=== PATIENT | male | born 2000 | race Caucasian/White ===

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

== ENCOUNTER 2018-09-12 11:05 | Emergency (ER) | payer OTHER ==
[2018-09-12 11:49] VITALS: BP 113/66; PULSE 63; RESP 18; TEMP 98
--- NOTE | 2018-09-12 12:34 | XR ---
Right hand and right wrist HISTORY: Trauma and pain 3 views of the right hand and 4 views of the right wrist There are mid diaphyseal fourth and fifth metacarpal fractures of the right hand with volar angulatio n, there is displacement of the fourth metacarpal fracture with bayonet apposition. There is associat ed soft tissue swelling present. No dislocation. IMPRESSION: Fourth and fifth metacarpal fractures.
== END 2018-09-12 13:05 | disposition left against medical advice (07) ==
LOC: EC 11:05
DX: S69.91XA Unspecified injury of right wrist, hand and finger(s), initial encounter (principal); W01.0XXA Fall on same level from slipping, tripping and stumbling without subsequent striking against object, initial encounter; Z53.21 Procedure and treatment not carried out due to patient leaving prior to being seen by health care provider
CPT/HCPCS: 99499

== ENCOUNTER 2018-09-16 20:33 | Emergency (ER) | payer OTHER ==
[2018-09-16 20:46] VITALS: TEMP 98
[2018-09-16 20:59] VITALS: BP 117/74; PULSE 78; RESP 18
--- NOTE | 2018-09-16 21:28 | ED ---
Psych HPI - General Source: patient, EMS Mode of arrival: EMS <Letitia Traore - Last Filed: 09/17/18 01:01> <Mani Pate - Last Filed: 09/17/18 08:33> - General Chief Complaint: Psychiatric Symptoms Stated Complaint: Self harm Time Seen by Provider: 09/16/18 20:41 - History of Present Illness Initial Comments: 18-year-old male patient presents to the emergency department today for evaluation after cutting himself with a razor. Patient states that he has been struggling with the fact that his father does not want to spend time with him. States that he has reached out multiple times to his father who says he will spend time with him, but he always comes up with a reason that it cannot happen. Patient states this frustrates him. States he became very frustrated today and decided to attempt to self-harm. Patient states he was not trying to kill himself, states he has too much to live for to . Patient denies any homicid al ideation. States he doesn't feel particularly depressed. States that he did have counseling once in the past but it didn't work out. States he did drink [address] Denies any street drug use. He has no physical symptoms or concerns other than the cuts on his arms. He believes his tetanus shot is up-to-date. Patient is also reporting significant right hand pain. He states he fell injuring in on 09/12/18, did present here for xrays and was told it was broken. States everything was taking so long he left prior to seeing a physician or having a splint applied. (Letitia Traore) - Related Data Home Medications Medication Instructions Recorded Confirmed Divalproex Sodium [Depakote] 500 mg PO BID 09/16/18 09/16/18 QUEtiapine FUMARATE [SEROquel] 25 mg PO HS 09/16/18 09/16/18 Previous Rx's Medication Instructions Recorded Naproxen [EC-Naprosyn] 500 mg PO BID PRN #30 tablet. 09/17/18 Allergies Allergy/AdvReac Type Severity Reaction Status Date / Time No Known Allergies Allergy Verified 09/16/18 22:07 Review of Systems ROS Other: All systems not noted in ROS Statement are negative. <Letitia Traore - Last Filed: 09/17/18 01:01> ROS Other: All systems not noted in ROS Statement are negative. <Mani Pate - Last Filed: 09/17/18 08:33> ROS Statement: Those systems with pertinent positive or pertinent negative responses have been documented in the HPI. Past Medical History Past Medical History: No Reported History Additional Past Medical History / Comment(s): spontaneous pneumothorax History of Any Multi-Drug Resistant Organisms: None Reported Past Surgical History: No Surgical Hx Reported Additional Past Surgical History / Comment(s): chest tube Past Psychological History: ADD/ADHD, Anxiety, Bipolar, Depression, PTSD, Schizophrenia Smoking Status: Former smoker Past Alcohol Use History: Rare Past Drug Use History: None Reported <Letitia Traore - Last Filed: 09/17/18 01:01> General Exam General appearance: alert, in no apparent distress, other (Physical well- developed, well-nourished adult male patient in no acute distress. Vital signs upon presentation are temperature 98.0F, pulse 78, respirations 18, blood pressure 117/74, pulse ox 98% on room air.) Eye exam: Present: normal appearance, PERRL, EOMI. Absent: scleral icterus, conjunctival injection, periorbital swelling ENT exam: Present: normal exam, normal oropharynx, mucous membranes moist Respiratory exam: Present: normal lung sounds bilaterally. Absent: respiratory distress, wheezes, rales, rhonchi, stridor Cardiovascular Exam: Present: regular rate, normal rhythm, normal heart sounds. Absent: systolic murmur, diastolic murmur, rubs, gallop, clicks Extremities exam: Present: full ROM, normal capillary refill, other (There are multiple superficial lacerations of varying sizes to the bilateral volar forearms. No active bleeding. There is dried blood surrounding. Patient's skin is otherwise pink, warm, dry. Cap refills less than 3 seconds. Radial pulses 2+ and equal bilaterally. Right hand bony deformity noted over the right dorsal hand. There is soft tissue swelling. Radial pulses 2+ and equal bilaterally.). Absent: normal inspection, tenderness, pedal edema, joint swelling, calf tenderness Neurological exam: Present: alert, oriented X3, CN II-XII intact Psychiatric exam: Present: normal affect, normal mood Skin exam: Present: warm, dry, intact, normal color. Absent: rash <Rudy Traoreina Carlotta - Last Filed: 09/17/18 01:01> Course Vital Signs 09/16/18 20:39 Temperature 98 F Pulse Rate 78 Respiratory 18 Rate Blood Pressure 117/74 O2 Sat by Pulse 98 Oximetry Medical Decision Making - Radiology Data Radiology results: report reviewed, image reviewed <EugenieLetitia M - Last Filed: 09/17/18 01:01> <Mani Pate - Last Filed: 09/17/18 08:33> - Medical Decision Making 18-year-old male patient presents to the emergency department today for evaluation of self-inflicted wounds to the volar forearms. Physical examination did reveal multiple superficial lacerations to the volar aspect of the bilateral forearms. Bleeding was controlled. These lacerations did not require suture repair. Patient was seen and evaluated by emergency psychiatric services and salt that he does not meet inpatient criteria and is safe to be discharged home. He has not suicidal or homicidal. Patient also sustain an injury 3 days ago. He was seen and evaluated here and had x-rays performed however left prior to receiving treatment. X-ray was reviewed and did reveal nondisplaced but angulated fracture of the right fifth metacarpal and a displaced fracture of the fourth metacarpal. Hematoma block was performed, reduction of the fourth metacarpal was performed by my attending Dr. Pate. Patient tolerated this procedure well. Repeat x-ray was performed and showed similar appearing fractures to the previous x-ray. I did discuss findings and results with the patient. He is pleased an OCL splint and instructed to follow-up with category specialist for further evaluation as soon as possible. He is given naproxen for pain control and instructed to take Tylenol in addition to this. Return parameters were discussed in detail. He verbalizes understanding and agrees with this plan. (Letitia Traore) I saw this patient in conjunction with the physician payroll and benefits assistant. I performed independent history and physical exam. Agree with case management. I did personally participate in the reduction and splinting of this patient (Mani Pate) - Lab Data Lab Results 09/16/18 Range/Units 21:51 Urine Opiates Screen Not Detected (NotDetected) Ur Oxycodone Screen Not Detected (NotDetected) Urine Methadone Screen Not Detected (NotDetected) Ur Propoxyphene Screen Not Detected (NotDetected) Ur Barbiturates Screen Not Detected (NotDetected) U Tricyclic Antidepress Not Detected (NotDetected) Ur Phencyclidine Scrn Not Detected (NotDetected) Ur Amphetamines Screen Not Detected (NotDetected) U Methamphetamines Scrn Not Detected (NotDetected) U Benzodiazepines Scrn Not Detected (NotDetected) Urine Cocaine Screen Not Detected (NotDetected) U Marijuana (THC) Screen Not Detected (NotDetected) - Radiology Data 3 views of the right hand are obtained. Report reviewed in its entirety. Impression by Dr. Owens shows similar line of the fourth and fifth metacarpal diaphyseal fractures. (Letitia Traore) Disposition Is patient prescribed a controlled substance at d/c from ED?: No Time of Disposition: 00:45 <Letitia Traore - Last Filed: 09/17/18 01:01> <Mani Pate - Last Filed: 09/17/18 08:33> Clinical Impression: Self-harming behavior, Right hand fracture Disposition: HOME SELF-CARE Condition: Good Instructions (If sedation given, give patient instructions): Laceration (ED), Hand Fracture (ED), Suicide Prevention (ED) Additional Instructions: Follow-up with primary care physician for recheck this as possible. Follow-up with your category specialist for recheck as soon as possible, number has been provided below for you. Take Tylenol and prescription medication for pain control. Rest and ice the hand. Do not remove splint until follow-up. Return to the emergency department immediately for any new, worsening, or concerning symptoms. Prescriptions: Naproxen [EC-Naprosyn] 500 mg PO BID PRN #30 tablet.dr BOX Reason: Pain Referrals: Roland Patel DO [Medical Doctor] - 1-2 days
[2018-09-16 22:20] LABS: Amphetamine Screen,Urine Not Detected (NotDetected); Barbiturate Screen,Urine Not Detected (NotDetected); Benzodiazepines Screen,Urine Not Detected (NotDetected); Cocaine Screen,Urine Not Detected (NotDetected); Methadone Screen, Urine Not Detected (NotDetected); Opiate Screen,Urine Not Detected (NotDetected); Oxycodone Screen, Urine Not Detected (NotDetected); Phencyclidine Screen,Urine Not Detected (NotDetected); Tricyclic Antidepressant,Urine Not Detected (NotDetected); Urn Cannabinoid Scrn Not Detected (NotDetected)
[2018-09-16] MEDS ORDERED: LIDOCAINE 1% INJ 10MG/ML (20 ML MDV) SQ ONE (22:36)
[2018-09-17] MEDS ORDERED: NAPROXEN 250 MG TAB PO STA (00:19)
[2018-09-17] MEDS ORDERED: ACETAMINOPHEN TAB 325 MG TAB PO STA (00:19)
--- NOTE | 2018-09-17 00:35 | XR ---
EXAM: XR Right Hand Complete, 3 or More Views CLINICAL HISTORY: Post reduction (prev xray 09/12/18) TECHNIQUE: Frontal, lateral and oblique views of the right hand. COMPARISON: 09/12/2018 1210 FINDINGS: Bones/joints: Similar alignment of fourth and fifth metacarpal diaphyseal fractures. Soft tissues: Unremarkable. No radiopaque foreign body. IMPRESSION: Similar alignment of fourth and fifth metacarpal diaphyseal fractures.
== END 2018-09-17 01:05 | disposition home or self-care (01) ==
LOC: EC 20:33
DX: Z72.89 Other problems related to lifestyle (principal); Z63.8 Other specified problems related to primary support group; S62.306A Unspecified fracture of fifth metacarpal bone, right hand, initial encounter for closed fracture; S62.304A Unspecified fracture of fourth metacarpal bone, right hand, initial encounter for closed fracture; S51.812A Laceration without foreign body of left forearm, initial encounter; S51.811A Laceration without foreign body of right forearm, initial encounter; F31.9 Bipolar disorder, unspecified; F20.9 Schizophrenia, unspecified; Z87.891 Personal history of nicotine dependence; Z79.899 Other long term (current) drug therapy; X78.8XXA Intentional self-harm by other sharp object, initial encounter
CPT/HCPCS: 82075; 80306; 73120; 99285; 26605; J2001

== ENCOUNTER 2019-01-01 21:50 | Emergency (ER) | payer OTHER ==
[2019-01-01] MEDS ORDERED: DIVALPROEX 500 MG TABLET.DR PO STA (22:24)
--- NOTE | 2019-01-01 22:27 | ED ---
Psych HPI - General Chief Complaint: Extremity Injury, Upper Stated Complaint: Hand injury Time Seen by Provider: 01/01/19 22:00 Source: patient, RN notes reviewed, old records reviewed Mode of arrival: ambulatory - History of Present Illness Initial Comments: This is a 18-year-old male the ER for evaluation presenting of right hand pain complicated by psychiatric illness. Patient's been off psychiatric medications for a few weeks now this is secondary to moving the [place] than being arrested warm and brought to [facility] ([facility]]. Patient has had multiple recent fractures with unknown timeline of right hand all from boxer's break, patient had no surgical evaluation regarding that hand. Most recent inpatient punch 2 objects today both prior to coming to the ER and then one swollen line waiting in the ER. Initial injury occurred weeks ago MD Complaint: other (Patient states is off his medications) -: unknown Associated Psychiatric Symptoms: racing thoughts History of same: Yes Quality: constant Improves With: none Worsens With: none Context: significant life stressor (Recent arrest on warrant) Associated Symptoms: denies other symptoms Treatments Prior to Arrival: none If Self Harm: other (none) - Related Data Previous Rx's Medication Instructions Recorded Naproxen [EC-Naprosyn] 500 mg PO BID PRN #30 tablet. 09/17/18 Divalproex Sodium [Depakote] 500 mg PO BID #60 tab 01/01/19 QUEtiapine FUMARATE [SEROquel] 25 mg PO HS #30 tab 01/01/19 Allergies Allergy/AdvReac Type Severity Reaction Status Date / Time No Known Allergies Allergy Verified 01/01/19 21:56 Review of Systems ROS Statement: Those systems with pertinent positive or pertinent negative responses have been documented in the HPI. ROS Other: All systems not noted in ROS Statement are negative. Past Medical History Past Medical History: No Reported History Additional Past Medical History / Comment(s): spontaneous pneumothorax History of Any Multi-Drug Resistant Organisms: None Reported Past Surgical History: No Surgical Hx Reported Additional Past Surgical History / Comment(s): chest tube Past Psychological History: ADD/ADHD, Anxiety, Bipolar, Depression, PTSD, Schizophrenia Smoking Status: Former smoker Past Alcohol Use History: Rare Past Drug Use History: None Reported General Exam Limitations: no limitations General appearance: alert, in no apparent distress Head exam: Present: atraumatic, normocephalic, normal inspection Eye exam: Present: normal appearance, PERRL, EOMI. Absent: scleral icterus, conjunctival injection, periorbital swelling ENT exam: Present: normal exam, mucous membranes moist Neck exam: Present: normal inspection. Absent: tenderness, meningismus, lymphadenopathy Respiratory exam: Present: normal lung sounds bilaterally. Absent: respiratory distress, wheezes, rales, rhonchi, stridor Cardiovascular Exam: Present: normal rhythm, bradycardia, normal heart sounds. Absent: systolic murmur, diastolic murmur, rubs, gallop, clicks GI/Abdominal exam: Present: soft, normal bowel sounds. Absent: distended, tenderness, guarding, rebound, rigid Extremities exam: Present: normal inspection, full ROM, normal capillary refill. Absent: tenderness, pedal edema, joint swelling, calf tenderness Back exam: Present: normal inspection Neurological exam: Present: alert, oriented X3, CN II-XII intact Psychiatric exam: Present: normal affect, normal mood Skin exam: Present: warm, dry, intact, normal color. Absent: rash Course Vital Signs 01/01/19 21:52 Temperature 98.1 F Pulse Rate 53 L Respiratory 20 Rate Blood Pressure 121/64 O2 Sat by Pulse 95 Oximetry - Reevaluation(s) Reevaluation #1: 01/01/19 23:28 Medical records reviewed showing positive have fractures in his past. These fractures go back to August Reevaluation #2: 01/01/19 23:28 Discussed with patient and caregiver need to follow-up with orthopedics secondary to displaced and nonhealing fractures going on for 4 months now Reevaluation #3: 01/01/19 23:28 Just requesting psychiatric medication will follow-up with orthopedics as directed Medical Decision Making - Medical Decision Making 18 male the ER for evaluation of significant right hand fractures, off psychiatric medications given prescriptions for psychiatric medications here and urged to follow-up with orthopedics - Radiology Data Radiology results: report reviewed (X-ray right hand does show boxer's break fourth and fifth metatarsal significant displacement with delayed healing and nonunion), image reviewed Disposition Clinical Impression: Medication refill, Fracture of hand, Boxer's fracture Disposition: HOME SELF-CARE Condition: Good Instructions (If sedation given, give patient instructions): Hand Fracture (ED) Prescriptions: Divalproex Sodium [Depakote] 500 mg PO BID #60 tab QUEtiapine FUMARATE [SEROquel] 25 mg PO HS #30 tab Is patient prescribed a controlled substance at d/c from ED?: No Referrals: None,Stated [Primary Care Provider] - 1-2 days
[2019-01-01] MEDS ORDERED: QUEtiapine 25 MG TAB PO ONE (22:30)
--- NOTE | 2019-01-01 22:48 | XR ---
EXAMINATION TYPE: XR hand complete RT DATE OF EXAM: 01/01/2019 COMPARISON: 09/17/2018 HISTORY: Hand injury. Pain TECHNIQUE: 3 views FINDINGS: There is deformity of the fourth and fifth metacarpals related to healing fractures. There is slight posterior angulation at the fracture sites. There is bridging callus formation. IMPRESSION: Healing fractures of the fourth and fifth metacarpals without significant change in posit ion compared to last exam. No acute fracture seen.
[2019-01-01 23:51] VITALS: BP 120/71; PULSE 60; RESP 18; TEMP 97.9
== END 2019-01-01 23:36 | disposition home or self-care (01) ==
LOC: EC 21:50
DX: S62.394A Other fracture of fourth metacarpal bone, right hand, initial encounter for closed fracture (principal); S62.396A Other fracture of fifth metacarpal bone, right hand, initial encounter for closed fracture; Z76.0 Encounter for issue of repeat prescription; R00.1 Bradycardia, unspecified; Z87.891 Personal history of nicotine dependence; W22.01XA Walked into wall, initial encounter; Y93.89 Activity, other specified; Y92.009 Unspecified place in unspecified non-institutional (private) residence as the place of occurrence of the external cause
CPT/HCPCS: 99284

== ENCOUNTER 2019-01-03 21:13 | Emergency (ER) | payer OTHER ==
[2019-01-03 21:24] VITALS: TEMP 98
--- NOTE | 2019-01-03 21:26 | ED ---
General Adult HPI - General Chief complaint: Shortness of Breath Stated complaint: SOB, Syncope, vomiting blood Time Seen by Provider: 01/03/19 21:25 Source: patient Mode of arrival: wheelchair Limitations: no limitations - History of Present Illness Initial comments: Bill is a 18-year-old male with a history of psychiatric illness, patient resume psychiatric medications yesterday after being off them for a long period of time. Patient presents to the emergency Department today with multiple complaints. Patient reports he's been nauseated throughout the day today, he's also had bloody noses all day, he states that this evening he became very hot and sweaty, he then became chilled and nauseated and vomited noted there is blood in his vomit. He then became very anxious and decided to come to the ER. Upon arrival to ER patient felt that he could no longer breathe. Patient reported he has a history of spontaneous pneumo 2 in the past. - Related Data Previous Rx's Medication Instructions Recorded Naproxen [EC-Naprosyn] 500 mg PO BID PRN #30 tablet. 09/17/18 Divalproex Sodium [Depakote] 500 mg PO BID #60 tab 01/01/19 QUEtiapine FUMARATE [SEROquel] 25 mg PO HS #30 tab 01/01/19 Allergies Allergy/AdvReac Type Severity Reaction Status Date / Time No Known Allergies Allergy Verified 01/03/19 21:23 Review of Systems ROS Statement: Those systems with pertinent positive or pertinent negative responses have been documented in the HPI. ROS Other: All systems not noted in ROS Statement are negative. Past Medical History Past Medical History: No Reported History Additional Past Medical History / Comment(s): spontaneous pneumothorax History of Any Multi-Drug Resistant Organisms: None Reported Past Surgical History: No Surgical Hx Reported Additional Past Surgical History / Comment(s): chest tube Past Psychological History: ADD/ADHD, Anxiety, Bipolar, Depression, PTSD, Schizophrenia Smoking Status: Former smoker Past Alcohol Use History: Rare Past Drug Use History: None Reported General Exam - General Exam Comments Initial Comments: Physical Exam GENERAL: Patient is well-developed and well-nourished. Patient is nontoxic and well-hydrated and is in no distress. HENT: Normocephalic, Atraumatic. EYES: PERRL, EOMI PULMONARY: Unlabored respirations. No wheezing CARDIOVASCULAR: RRR Warm and well perfused extremities ABDOMEN: Non-distended SKIN: No rashes or bruising : Deferred NEUROLOGIC: Alert and oriented Normal speech Normal gait MUSCULOSKELETAL: Moving all extremities with no apparent injury PSYCHIATRIC: No SI/HI Limitations: no limitations Course Vital Signs 01/03/19 21:21 Temperature 98.0 F Pulse Rate 72 Respiratory 28 H Rate Blood Pressure 145/56 O2 Sat by Pulse 98 Oximetry Medical Decision Making - Medical Decision Making Upon arrival patient was noted to be tachypneic with rapid shallow breathing. Patient was near tears and very anxious appearing. Patient had clear bilateral breath sounds and oxygen saturation 98% on room air. Breathing exercises were discussed with the patient. Patient was given Ativan for anxiolysis. Patient was able to slow his breathing, breath sounds remained clear. Chest x-ray with no acute findings. Physical exam is unremarkable vital signs are unremarkable. I discussed with the patient that likely his persistent nausea throughout the day today's related to starting new medications yesterday. Patient has a history of scant GI bleeding in the past with episodes of vomiting but has never been evaluated by GI. No history of alcohol abuse or cirrhosis. Patient will be given Zofran ODT to take as needed for nausea. Patient drinking water comfortably while in the emergency department. At this time patient stable for discharge home follow up with outpatient physician. Disposition Clinical Impression: Nausea and vomiting, Hyperventilating Disposition: HOME SELF-CARE Condition: Stable Instructions (If sedation given, give patient instructions): Acute Nausea and Vomiting (ED) Additional Instructions: You did received Ativan while in the emergency department, this will cause your drug screen to be positve for benzodiazapines Is patient prescribed a controlled substance at d/c from ED?: No Referrals: None,Stated [Primary Care Provider] - 1-2 days
[2019-01-03] MEDS ORDERED: LORazepam 2 MG/ML INJ IV STA (21:31)
--- NOTE | 2019-01-03 21:53 | XR ---
EXAMINATION TYPE: XR chest 1V portable DATE OF EXAM: 01/03/2019 COMPARISON: 12/23/2014 HISTORY: Chest pain TECHNIQUE: Single frontal view of the chest is obtained. FINDINGS: Heart and mediastinum are normal. Lungs are clear. Diaphragm is normal. Bony thorax appear s normal. Pulmonary vascularity is normal. IMPRESSION: Normal chest. No change.
[2019-01-03] MEDS ORDERED: ONDANSETRON 4 MG ODT STARTER PACK 2 TAB BTL PO STA (22:13)
[2019-01-03 22:29] VITALS: BP 146/62; PULSE 69; RESP 20
== END 2019-01-03 22:19 | disposition home or self-care (01) ==
LOC: EC 21:13
DX: R06.4 Hyperventilation (principal); R11.2 Nausea with vomiting, unspecified; R06.82 Tachypnea, not elsewhere classified; Z87.19 Personal history of other diseases of the digestive system; Z87.891 Personal history of nicotine dependence
CPT/HCPCS: 71045; 99284; 96374; J2060; S0119

== ENCOUNTER 2019-02-06 17:24 | Emergency (ER) | payer OTHER ==
[2019-02-06 17:29] VITALS: BP 104/47; PULSE 72; RESP 18; TEMP 99.1
[2019-02-06] MEDS ORDERED: PROPARACAINE 0.5% OPHTH DROPS 15 ML BTL BOTH EYES STA (18:42)
--- NOTE | 2019-02-06 18:56 | ED ---
General Adult HPI - General Chief complaint: Back Pain/Injury Stated complaint: kidney pain/eyes burning Time Seen by Provider: 02/06/19 18:36 Source: patient, RN notes reviewed Mode of arrival: ambulatory Limitations: no limitations - History of Present Illness Initial comments: 18-year-old male with a past medical history of spontaneous pneumothorax p resents for multiple complaints. Patient states his eyes are burning. States this started earlier this morning. Patient denies getting any substance into his eyes. Denies any visual changes. Denies any significant pain. Patient also complaining of low back pain. States this hurts more with bending. Patient is concerned it could be his kidneys or an infection. 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 Denies dysuria fever or hematuria. Denies abdominal pain.Patient has no other complaints at this time including shortness of breath, chest pain, abdominal pain, nausea or vomiting, headache, or visual changes. - Related Data Previous Rx's Medication Instructions Recorded Naproxen [EC-Naprosyn] 500 mg PO BID PRN #30 tablet. 09/17/18 Divalproex Sodium [Depakote] 500 mg PO BID #60 tab 01/01/19 QUEtiapine FUMARATE [SEROquel] 25 mg PO HS #30 tab 01/01/19 Loratadine [Claritin] 10 mg PO DAILY #20 tab 02/06/19 Allergies Allergy/AdvReac Type Severity Reaction Status Date / Time No Known Allergies Allergy Verified 02/06/19 17:28 Review of Systems ROS Statement: Those systems with pertinent positive or pertinent negative responses have been documented in the HPI. ROS Other: All systems not noted in ROS Statement are negative. Past Medical History Past Medical History: No Reported History, Seizure Disorder Additional Past Medical History / Comment(s): spontaneous pneumothorax History of Any Multi-Drug Resistant Organisms: None Reported Past Surgical History: No Surgical Hx Reported Additional Past Surgical History / Comment(s): chest tube Past Psychological History: ADD/ADHD, Anxiety, Bipolar, Depression, PTSD, Schizophrenia Smoking Status: Former smoker Past Alcohol Use History: Rare Past Drug Use History: None Reported General Exam Limitations: no limitations General appearance: alert, in no apparent distress Head exam: Present: atraumatic, normocephalic, normal inspection Eye exam: Present: normal appearance, PERRL, EOMI, other (fluorescein stain and Wood's lamp used to visualize the conjunctiva, no evidence for abrasion.). Absent: scleral icterus, conjunctival injection, periorbital swelling ENT exam: Present: normal exam, mucous membranes moist Neck exam: Present: normal inspection, full ROM. Absent: tenderness, meningismus, lymphadenopathy Respiratory exam: Present: normal lung sounds bilaterally. Absent: respiratory distress, wheezes, rales, rhonchi, stridor Cardiovascular Exam: Present: regular rate, normal rhythm, normal heart sounds. Absent: systolic murmur, diastolic murmur, rubs, gallop, clicks GI/Abdominal exam: Present: soft, normal bowel sounds. Absent: distended, tenderness, guarding, rebound, rigid Back exam: Absent: CVA tenderness (R), CVA tenderness (L), vertebral tenderness Neurological exam: Present: alert, oriented X3, normal gait Course Vital Signs 02/06/19 17:25 Temperature 99.1 F Pulse Rate 72 Respiratory 18 Rate Blood Pressure 104/47 O2 Sat by Pulse 97 Oximetry Medical Decision Making - Medical Decision Making Patient is well-appearing, nontoxic, no distress. No flank pain on exam. Patient does have mild hematuria on urinalysis. I do not suspect kidney stone as pain is mild and worsens with movement. It is in the generalized low back. Patient likely is just muscular strain of the lumbar back. No numbness or tingl ing in the lower extremities. No bladder or bowel changes. No dysuria. No numbness in the groin or buttock. Patient will take Motrin and Tylenol for pain. Patient is also having burning around his eyes. I did stain these with fluorescein stain, no evidence for abrasion. Patient will be put on Claritin. He will return if he has any worsening symptoms. - Lab Data Lab Results 02/06/19 Range/Units 18:50 Urine Color Yellow Urine Appearance Clear (Clear) Urine pH 8.0 (5.0-8.0) Ur Specific [place] 1.023 (1.001-1.035) Urine Protein Trace H (Negative) Urine Glucose (UA) Negative (Negative) Urine Ketones Negative (Negative) Urine Blood Trace H (Negative) Urine Nitrite Negative (Negative) Urine Bilirubin Negative (Negative) Urine Urobilinogen 3.0 (<2.0) mg/dL Ur Leukocyte Esterase Negative (Negative) Urine RBC 9 H (0-5) /hpf Urine WBC <1 (0-5) /hpf Urine Mucus Rare H (None) /hpf Disposition Clinical Impression: Hematuria Disposition: HOME SELF-CARE Condition: Good Instructions (If sedation given, give patient instructions): Acute Low Back Pain (ED), Hematuria (ED) Additional Instructions: please take Claritin as directed for eye burning. Pleasetake Motrin and Tylenol for back pain. Follow-up with primary care in 1-2 days for repeat urinalysis to ensure that blood resolved. Prescriptions: Loratadine [Claritin] 10 mg PO DAILY #20 tab Is patient prescribed a controlled substance at d/c from ED?: No Referrals: Skylar Siegel MD [REFERRING] - 1-2 days Time of Disposition: 19:53
[2019-02-06 19:05] LABS: Appearance,Urine Clear (Clear); Bilirubin,Urine Negative (Negative); Blood,Urine Trace (Negative); Color,Urine Yellow; Glucose,Urine (UA) Negative (Negative); Ketones,Urine Negative (Negative); Leukocyte Esterase,Urine Negative (Negative); Mucus,Urine Rare /hpf; Nitrite,Urine Negative (Negative); Protein,Urine Trace (Negative); RBC,Urine 9 /hpf (0-5); Specific Gravity,Urine 1.023 (1.001-1.035); WBC,Urine <1 /hpf (0-5)
[2019-02-07 13:41] LABS: C. trachomatis,PCR Negative (Neg,Equiv); Chlamydia trachomatis Source Urine; N. gonorrhoeae,PCR Negative (Neg,Equiv); Neisseria Source Urine
== END 2019-02-06 20:00 | disposition home or self-care (01) ==
LOC: EC 17:24
DX: R31.9 Hematuria, unspecified (principal); M54.5 Low back pain; H57.89 Other specified disorders of eye and adnexa; Z87.891 Personal history of nicotine dependence
CPT/HCPCS: 81001; 87086; 87491; 87591; 87661; 99283

== ENCOUNTER 2019-02-27 02:25 | Emergency (ER) | payer OTHER ==
[2019-02-27] MEDS ORDERED: ONDANSETRON 4 MG ODT STARTER PACK 2 TAB BTL PO STA (03:44)
--- NOTE | 2019-02-27 03:45 | ED ---
Nausea/Vomiting/Diarrhea HPI - General Chief complaint: Nausea/Vomiting/Diarrhea Stated complaint: Vomiting Time Seen by Provider: 02/27/19 03:44 Source: patient Mode of arrival: ambulatory Limitations: no limitations - History of Present Illness Initial comments: Bill is a 19-year-old male who lives at [facility], presents to the emergency room and today via private vehicle for evaluation of nausea and vomiting. Patient reports that he began feeling nauseated he didn't feel well he didn't feel like eating but attempted to eat dinner which the cervix not chose. Patient reports he then had 2 hours of vomiting. At which time he decided to come to the ER for evaluation. Patient reports upon arrival in the emergency department he is feeling slightly better but hasn't been able to hold down any liquids and is concerned that he is dehydrated. Patient reports crampy abdominal pain that began with the vomiting seems to be worse on the right than the left. No diarrhea. Last bowel movement was earlier today. - Related Data Previous Rx's Medication Instructions Recorded Naproxen [EC-Naprosyn] 500 mg PO BID PRN #30 tablet. 09/17/18 Divalproex Sodium [Depakote] 500 mg PO BID #60 tab 01/01/19 QUEtiapine FUMARATE [SEROquel] 25 mg PO HS #30 tab 01/01/19 Loratadine [Claritin] 10 mg PO DAILY #20 tab 02/06/19 Allergies Allergy/AdvReac Type Severity Reaction Status Date / Time No Known Allergies Allergy Verified 02/06/19 17:28 Review of Systems ROS Statement: Those systems with pertinent positive or pertinent negative responses have been documented in the HPI. ROS Other: All systems not noted in ROS Statement are negative. Past Medical History Past Medical History: No Reported History, Seizure Disorder Additional Past Medical History / Comment(s): spontaneous pneumothorax History of Any Multi-Drug Resistant Organisms: None Reported Past Surgical History: No Surgical Hx Reported Additional Past Surgical History / Comment(s): chest tube, Past Psychological History: ADD/ADHD, Anxiety, Bipolar, Depression, PTSD, Schizophrenia Smoking Status: Former smoker Past Alcohol Use History: Rare Past Drug Use History: None Reported General Exam - General Exam Comments Initial Comments: Physical Exam GENERAL: Patient is well-developed and well-nourished. Patient is nontoxic and well- hydrated and is in no distress. HENT: Normocephalic, Atraumatic. EYES: PERRL, EOMI PULMONARY: Unlabored respirations. No audible rales rhonchi or wheezing was noted. CARDIOVASCULAR: There is a regular rate and rhythm without any murmurs gallops or rubs. ABDOMEN: Diffuse tenderness to palpation SKIN: Skin is clear with no lesions or rashes and otherwise unremarkable. : Deferred NEUROLOGIC: Patient is alert and oriented x3. Moving all extremities spontaneously MUSCULOSKELETAL: Normal extremities with adequate strength and full range of motion. No lower extremity swelling or edema. No calf tenderness. PSYCHIATRIC: Flat affect Limitations: no limitations Course Vital Signs 02/27/19 02/27/19 02/27/19 02:28 03:49 05:57 Temperature 97.6 F 97.9 F Pulse Rate 79 60 60 Respiratory 18 16 18 Rate Blood Pressure 134/65 121/64 124/77 O2 Sat by Pulse 99 100 100 Oximetry Medical Decision Making - Medical Decision Making Patient was seen and evaluated history is obtained from patient Patient had acute onset of nausea and vomiting without diarrhea. Patient unable to tolerate any by mouth intake for 4 hours now. Labs were ordered and resulted with acute leukocytosis with neutrophilia therefore computed tomography scan of the abdomen was ordered and resulted with no acute findings aside from a distended bladder likely secondary to the fluids the patient was given. Patient has normal kidney function normal electrolytes no elevation of his CRP. Patient was reevaluated after fluids reports he's feeling much better he got Zofran ODT and has had no nausea or vomiting is comfortable with plan for discharge home and outpatient follow-up. 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 Patient discharged home in stable condition. - Lab Data Result diagrams: 02/27/19 04:21 02/27/19 04:21 Lab Results 02/27/19 02/27/19 Range/Units 04:21 04:21 WBC 19.8 H (3.8-10.6) k/uL RBC 5.01 (4.30-5.90) m/uL Hgb 15.9 (13.0-17.5) gm/dL Hct 44.4 (39.0-53.0) % MCV 88.7 (80.0-100.0) fL MCH 31.8 (25.0-35.0) pg MCHC 35.8 (31.0-37.0) g/dL RDW 11.9 (11.5-15.5) % Plt Count 260 (150-450) k/uL Neutrophils % 88 % Lymphocytes % 6 % Monocytes % 3 % Eosinophils % 1 % Basophils % 1 % Neutrophils # 17.5 H (1.3-7.7) k/uL Lymphocytes # 1.2 (1.0-4.8) k/uL Monocytes # 0.7 (0-1.0) k/uL Eosinophils # 0.2 (0-0.7) k/uL Basophils # 0.1 (0-0.2) k/uL Sodium 139 (137-145) mmol/L Potassium 4.3 (3.5-5.1) mmol/L Chloride 104 (98-107) mmol/L Carbon Dioxide 27 (22-30) mmol/L Anion Gap 8 mmol/L BUN 8 L (9-20) mg/dL Creatinine 0.84 (0.66-1.25) mg/dL Est GFR (CKD-EPI)AfAm >90 (>60 ml/min/1.73 sqM) Est GFR (CKD-EPI)NonAf >90 (>60 ml/min/1.73 sqM) Glucose 112 H (74-99) mg/dL Calcium 9.6 (8.4-10.2) mg/dL Total Bilirubin 0.6 (0.2-1.3) mg/dL AST 33 (17-59) U/L ALT 20 (4-49) U/L Alkaline Phosphatase 88 (38-126) U/L C-Reactive Protein <5.0 (<10.0) mg/L Total Protein 7.9 (6.3-8.2) g/dL Albumin 4.7 (3.5-5.0) g/dL Disposition Clinical Impression: Nausea and vomiting Disposition: HOME SELF-CARE Condition: Stable Instructions (If sedation given, give patient instructions): Acute Nausea and Vomiting (ED) Is patient prescribed a controlled substance at d/c from ED?: No Referrals: None,Stated [Primary Care Provider] - 1-2 days
[2019-02-27 03:51] VITALS: PULSE 60; TEMP 97.9
[2019-02-27] MEDS ORDERED: SODIUM CHLORIDE 0.9% 1,000 ML IV STA (04:06)
[2019-02-27 04:31] LABS: Basophils # (A) 0.1 k/uL (0-0.2); Basophils % (A) 1 %; Eosinophils # (A) 0.2 k/uL (0-0.7); Eosinophils % (A) 1 %; HCT 44.4 % (39.0-53.0); HGB 15.9 gm/dL (13.0-17.5); Lymphocytes # (A) 1.2 k/uL (1.0-4.8); Lymphocytes % (A) 6 %; MCH 31.8 pg (25.0-35.0); MCHC 35.8 g/dL (31.0-37.0); MCV 88.7 fL (80.0-100.0); Mean Platelet Volume 6.7; Monocytes # (A) 0.7 k/uL (0-1.0); Monocytes % (A) 3 %; Neutrophils # (A) 17.5 k/uL (1.3-7.7); Neutrophils % (A) 88 %; Platelet Count 260 k/uL (150-450); RBC 5.01 m/uL (4.30-5.90); RDW 11.9 % (11.5-15.5); WBC 19.8 k/uL (3.8-10.6)
[2019-02-27 04:45] LABS: ALT 20 U/L (4-49); AST 33 U/L (17-59); African American GFR (CKD) >90 (>60 ml/min/1.73 sqM); Albumin 4.7 g/dL (3.5-5.0); Alkaline Phosphatase 88 U/L (38-126); Anion Gap 8 mmol/L; Blood Urea Nitrogen 8 mg/dL (9-20); C Reactive Protein <5.0 mg/L (<10.0); Calcium 9.6 mg/dL (8.4-10.2); Carbon Dioxide 27 mmol/L (22-30); Chloride 104 mmol/L (98-107); Glucose 112 mg/dL (74-99); Non-African American GFR(CKD) >90 (>60 ml/min/1.73 sqM); Potassium 4.3 mmol/L (3.5-5.1); Sodium 139 mmol/L (137-145); Total Bilirubin 0.6 mg/dL (0.2-1.3); Total Protein 7.9 g/dL (6.3-8.2)
--- NOTE | 2019-02-27 05:35 | CT ---
EXAM: CT Abdomen and Pelvis With Intravenous Contrast CLINICAL HISTORY: ITS.REASON CT Reason: abd pain, leukocytosis TECHNIQUE: Axial computed tomography images of the abdomen and pelvis with intravenous contrast. CTDI is 7 mGy and DLP is 480 mGy-cm. This CT exam was performed using one or more of the following dose reduction techniques: automated exposure control, adjustment of the mA and/or kV according to patient size, and/or use of iterative reconstruction technique. COMPARISON: No relevant prior studies available. FINDINGS: Lung bases: No mass. No consolidation. ABDOMEN: Liver: Enlarged. Gallbladder and bile ducts: Unremarkable. Pancreas: Unremarkable. Spleen: Unremarkable. Adrenals: Unremarkable. Kidneys and ureters: No hydronephrosis. Both ureters are mildly dilated. Stomach and bowel: No bowel obstruction. Mildly thickened descending colon. PELVIS: Appendix: No evidence of appendicitis. Bladder: Moderately distended without wall thickening. Reproductive: Unremarkable. ABDOMEN and PELVIS: Intraperitoneal space: Unremarkable. Bones/joints: No acute fractures. Soft tissues: Unremarkable. Vasculature: No abdominal aortic aneurysm. Lymph nodes: No enlarged lymph nodes. IMPRESSION: 1. Mildly thickened descending colon, likely due to under distention versus colitis. No bowel obstruction. Appendix is normal. 2. Moderately distended bladder with back pressure causing mild dilatation of the bilateral ureters. No stones are identified. 3. Hepatomegaly.
[2019-02-27 05:58] VITALS: BP 124/77; RESP 18
== END 2019-02-27 05:58 | disposition home or self-care (01) ==
LOC: EC 02:25
DX: R11.2 Nausea with vomiting, unspecified (principal); R10.9 Unspecified abdominal pain; N32.89 Other specified disorders of bladder; Z87.891 Personal history of nicotine dependence
CPT/HCPCS: 36415; 80053; 85025; 86140; 74177; 99284; 96360; 96361; S0119; Q9967

== ENCOUNTER 2019-03-17 17:27 | Emergency (ER) | payer OTHER ==
[2019-03-17 17:34] VITALS: BP 128/73; PULSE 95; RESP 18; TEMP 98.4
[2019-03-17] MEDS ORDERED: LIDOCAINE 1% INJ 10MG/ML (20 ML MDV) SQ ONE (17:59)
[2019-03-17] MEDS ORDERED: DIPH,PERTUS(ACELL)TETVAC-LF 0.5 ML VIAL IM ONE (18:03)
--- NOTE | 2019-03-17 18:11 | ED ---
Wound/Laceration HPI - General Chief Complaint: Wound/Laceration Stated Complaint: Laceration leg Time Seen by Provider: 03/17/19 17:58 Source: patient Mode of arrival: ambulatory Limitations: no limitations - History of Present Illness Initial Comments: Patient is a 19-year-old male presenting to emergency with a chief complaint of a laceration. 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 This occurred a few hours prior to arrival.. Patient reports minimal pain. He denies any bleeding at the site of injury. Denies any loss of sensation or tingling. Tetanus status is not up-to-date. Patient states that he was required to come to the ED for evaluation from the [facility]. Denies fevers nausea or vomiting. - Related Data Previous Rx's Medication Instructions Recorded Naproxen [EC-Naprosyn] 500 mg PO BID PRN #30 tablet. 09/17/18 Divalproex Sodium [Depakote] 500 mg PO BID #60 tab 01/01/19 QUEtiapine FUMARATE [SEROquel] 25 mg PO HS #30 tab 01/01/19 Loratadine [Claritin] 10 mg PO DAILY #20 tab 02/06/19 Allergies Allergy/AdvReac Type Severity Reaction Status Date / Time No Known Allergies Allergy Verified 03/17/19 17:33 Review of Systems ROS Statement: Those systems with pertinent positive or pertinent negative responses have been documented in the HPI. ROS Other: All systems not noted in ROS Statement are negative. Past Medical History Past Medical History: Seizure Disorder Additional Past Medical History / Comment(s): spontaneous pneumothorax History of Any Multi-Drug Resistant Organisms: None Reported Past Surgical History: No Surgical Hx Reported Additional Past Surgical History / Comment(s): chest tube, Past Psychological History: ADD/ADHD, Anxiety, Bipolar, Depression, PTSD, Schizophrenia Smoking Status: Former smoker Past Alcohol Use History: Rare Past Drug Use History: None Reported General Exam Limitations: no limitations General appearance: alert, in no apparent distress Head exam: Present: atraumatic, normocephalic, normal inspection Eye exam: Present: normal appearance Pupils: Present: normal accommodation ENT exam: Present: normal exam Neck exam: Present: normal inspection Respiratory exam: Present: normal lung sounds bilaterally Cardiovascular Exam: Present: regular rate, normal rhythm, normal heart sounds Extremities exam: Present: full ROM, normal capillary refill. Absent: normal inspection (6 cm, linear abrasion.), tenderness, pedal edema, joint swelling, calf tenderness Back exam: Present: normal inspection, full ROM Neurological exam: Present: alert, oriented X3 Psychiatric exam: Present: normal affect, normal mood Skin exam: Present: warm, dry, intact, normal color Course Vital Signs 03/17/19 17:30 Temperature 98.4 F Pulse Rate 95 Respiratory 18 Rate Blood Pressure 128/73 O2 Sat by Pulse 97 Oximetry Medical Decision Making - Medical Decision Making Patient is a 19-year-old male presenting to emergency Department with a chief complaint of a laceration. Patient has a 6 cm linear abrasion. No need for sutures. Not a true laceration. Patient given tetanus vaccination. The patient was thoroughly cleaned and irrigated with iodine and water, respectively. Strict return parameters were thoroughly discussed the patient was understanding and agreeable. Case discussed with physician. Disposition Clinical Impression: Abrasion Disposition: HOME SELF-CARE Condition: Stable Instructions (If sedation given, give patient instructions): Abrasion (ED) Additional Instructions: Return to emergency department if symptoms worsen. Is patient prescribed a controlled substance at d/c from ED?: No Referrals: None,Stated [Primary Care Provider] - 1-2 days Time of Disposition: 18:13
== END 2019-03-17 18:43 | disposition home or self-care (01) ==
LOC: EC 17:27
DX: S70.312A Abrasion, left thigh, initial encounter (principal); Z23 Encounter for immunization; Z87.891 Personal history of nicotine dependence; W26.8XXA Contact with other sharp object(s), not elsewhere classified, initial encounter; Y93.89 Activity, other specified; Y92.69 Other specified industrial and construction area as the place of occurrence of the external cause
CPT/HCPCS: 90471; 90715; 99282

== ENCOUNTER 2019-03-19 09:16 | Emergency (ER) | payer OTHER ==
[2019-03-19 09:24] VITALS: TEMP 98.1
[2019-03-19] MEDS ORDERED: MECLIZINE 12.5 MG TAB PO STA (09:36)
[2019-03-19] MEDS ORDERED: ONDANSETRON 4 MG/2 ML VIAL IVP STA (09:36)
[2019-03-19] MEDS ORDERED: SODIUM CHLORIDE 0.9% 1,000 ML IV STA (09:36)
[2019-03-19] MEDS ORDERED: KETOROLAC 30 MG/ML 1 ML VIAL IVP STA (09:36)
--- NOTE | 2019-03-19 10:10 | ED ---
Dizziness HPI - General Chief Complaint: Dizziness Stated Complaint: Dizziness Time Seen by Provider: 03/19/19 09:28 Source: patient, RN notes reviewed, old records reviewed Mode of arrival: wheelchair Limitations: no limitations - History of Present Illness Initial Comments: Patient is a 19-year-old male presents today for dizziness began this morning with associated nausea and vomiting. Patient reports that he does have some abdominal pain at this time, bilateral sides. Patient states he's had no history of fevers. Denies any history of sick contacts. Patient reports that he's had some minor upper respiratory congestion. He states that it feels like the [facility] had a history of vertigo in the past. - Related Data Previous Rx's Medication Instructions Recorded Naproxen [EC-Naprosyn] 500 mg PO BID PRN #30 tablet. 09/17/18 Divalproex Sodium [Depakote] 500 mg PO BID #60 tab 01/01/19 QUEtiapine FUMARATE [SEROquel] 25 mg PO HS #30 tab 01/01/19 Loratadine [Claritin] 10 mg PO DAILY #20 tab 02/06/19 Meclizine [Antivert] 25 mg PO BID #20 tab 03/19/19 Ondansetron [Zofran] 4 mg PO Q8HR PRN #8 tab 03/19/19 Allergies Allergy/AdvReac Type Severity Reaction Status Date / Time No Known Allergies Allergy Verified 03/19/19 09:22 Review of Systems ROS Statement: Those systems with pertinent positive or pertinent negative responses have been documented in the HPI. ROS Other: All systems not noted in ROS Statement are negative. Past Medical History Past Medical History: Seizure Disorder Additional Past Medical History / Comment(s): spontaneous pneumothorax History of Any Multi-Drug Resistant Organisms: None Reported Past Surgical History: No Surgical Hx Reported Additional Past Surgical History / Comment(s): chest tube, Past Psychological History: ADD/ADHD, Anxiety, Bipolar, Depression, PTSD, Sc hizophrenia Smoking Status: Former smoker Past Alcohol Use History: Rare Past Drug Use History: None Reported General Exam - General Exam Comments Initial Comments: 19-year-old male. Alert and oriented 3. No distress. Limitations: no limitations General appearance: alert, in no apparent distress Head exam: Present: atraumatic, normocephalic, normal inspection Eye exam: Present: normal appearance, PERRL, EOMI. Absent: scleral icterus, conjunctival injection, periorbital swelling ENT exam: Present: normal exam, mucous membranes moist Neck exam: Present: normal inspection. Absent: tenderness, meningismus, lymphadenopathy Respiratory exam: Present: normal lung sounds bilaterally. Absent: respiratory distress, wheezes, rales, rhonchi, stridor Cardiovascular Exam: Present: regular rate, normal rhythm, normal heart sounds. Absent: systolic murmur, diastolic murmur, rubs, gallop, clicks GI/Abdominal exam: Present: soft, normal bowel sounds. Absent: distended, tenderness, guarding, rebound, rigid Extremities exam: Present: normal inspection Back exam: Present: normal inspection Course Vital Signs 03/19/19 03/19/19 03/19/19 09:22 09:24 10:01 Temperature 98.1 F Pulse Rate 70 50 L Respiratory 18 20 Rate Blood Pressure 110/62 121/65 O2 Sat by Pulse 99 99 Oximetry 03/19/19 03/19/19 03/19/19 10:24 10:30 11:00 Temperature Pulse Rate 47 L 48 L 47 L Respiratory Rate Blood Pressure 111/59 108/60 111/59 O2 Sat by Pulse 99 97 99 Oximetry 03/19/19 03/19/19 03/19/19 11:30 12:00 12:30 Temperature Pulse Rate 50 L 48 L 60 Respiratory Rate Blood Pressure 114/56 109/56 110/58 O2 Sat by Pulse 100 99 Oximetry 03/19/19 12:39 Temperature Pulse Rate Respiratory 20 Rate Blood Pressure O2 Sat by Pulse Oximetry EKG Findings - EKG Comments: EKG Findings:: EKG shows sinus bradycardia with sinus arrhythmia, otherwise normal EKG. Ventricular rate of 49 bpm. DE interval 164 ms. QS Patient is 100 ms. QT QTc is 460/4:[address] elevation. Medical Decision Making - Medical Decision Making 19 year old with one day of vomiting and dizziness. Given IV fluids. Labs are unremarkable. Patient given zofran and meclizine and reports improvement. Patient has no signs of distress, sitting on phone. PAtient UA did show minor bacteria, discussed concern for possible STD, but patient denies concern for STD. PAtient requests discharge home. - Lab Data Result diagrams: 03/19/19 10:00 03/19/19 10:00 Lab Results 03/19/19 03/19/19 03/19/19 Range/Units 10:00 10:00 10:08 WBC 4.5 (3.8-10.6) k/uL RBC 4.86 (4.30-5.90) m/uL Hgb 15.0 (13.0-17.5) gm/dL Hct 44.1 (39.0-53.0) % MCV 90.7 (80.0-100.0) fL MCH 30.9 (25.0-35.0) pg MCHC 34.1 (31.0-37.0) g/dL RDW 12.3 (11.5-15.5) % Plt Count 258 (150-450) k/uL Neutrophils % 50 % Lymphocytes % 33 % Monocytes % 10 % Eosinophils % 2 % Basophils % 1 % Neutrophils # 2.2 (1.3-7.7) k/uL Lymphocytes # 1.5 (1.0-4.8) k/uL Monocytes # 0.5 (0-1.0) k/uL Eosinophils # 0.1 (0-0.7) k/uL Basophils # 0.1 (0-0.2) k/uL Sodium 140 (137-145) mmol/L Potassium 3.9 (3.5-5.1) mmol/L Chloride 108 H (98-107) mmol/L Carbon Dioxide 26 (22-30) mmol/L Anion Gap 6 mmol/L BUN 14 (9-20) mg/dL Creatinine 0.79 (0.66-1.25) mg/dL Est GFR (CKD-EPI)AfAm >90 (>60 ml/min/1.73 sqM) Est GFR (CKD-EPI)NonAf >90 (>60 ml/min/1.73 sqM) Glucose 105 H (74-99) mg/dL Calcium 9.1 (8.4-10.2) mg/dL Total Bilirubin 1.1 (0.2-1.3) mg/dL AST 31 (17-59) U/L ALT 18 (4-49) U/L Alkaline Phosphatase 66 (38-126) U/L Total Protein 6.8 (6.3-8.2) g/dL Albumin 4.1 (3.5-5.0) g/dL Lipase 55 (23-300) U/L Urine Color Yellow Urine Appearance Cloudy (Clear) Urine pH 7.0 (5.0-8.0) Ur Specific [place] 1.026 (1.001-1.035) Urine Protein Trace H (Negative) Urine Glucose (UA) Negative (Negative) Urine Ketones Negative (Negative) Urine Blood Negative (Negative) Urine Nitrite Negative (Negative) Urine Bilirubin Negative (Negative) Urine Urobilinogen 2.0 (<2.0) mg/dL Ur Leukocyte Esterase Negative (Negative) Urine RBC 3 (0-5) /hpf Urine WBC 2 (0-5) /hpf Amorphous Sediment Rare H (None) /hpf Urine Bacteria Rare H (None) /hpf Urine Mucus Occasional H (None) /hpf Disposition Clinical Impression: Nausea and vomiting, Dizziness Disposition: HOME SELF-CARE Condition: Good Instructions (If sedation given, give patient instructions): Dizziness (ED) Additional Instructions: Please use medication as discussed. Please follow up with family doctor if symptoms have not improved over the next two days. Please return to the emergency room if your symptoms increase or worsen or for any other concerns. Prescriptions: Meclizine [Antivert] 25 mg PO BID #20 tab Ondansetron [Zofran] 4 mg PO Q8HR PRN #8 tab PRN Reason: Nausea And Vomiting Is patient prescribed a controlled substance at d/c from ED?: No Referrals: Nonstaff,Physician [Primary Care Provider] - 1-2 days Time of Disposition: 12:25
[2019-03-19 10:26] LABS: ALT 18 U/L (4-49); AST 31 U/L (17-59); African American GFR (CKD) >90 (>60 ml/min/1.73 sqM); Albumin 4.1 g/dL (3.5-5.0); Alkaline Phosphatase 66 U/L (38-126); Anion Gap 6 mmol/L; Blood Urea Nitrogen 14 mg/dL (9-20); Calcium 9.1 mg/dL (8.4-10.2); Carbon Dioxide 26 mmol/L (22-30); Chloride 108 mmol/L (98-107); Glucose 105 mg/dL (74-99); Non-African American GFR(CKD) >90 (>60 ml/min/1.73 sqM); Potassium 3.9 mmol/L (3.5-5.1); Sodium 140 mmol/L (137-145); Total Bilirubin 1.1 mg/dL (0.2-1.3); Total Protein 6.8 g/dL (6.3-8.2)
[2019-03-19 10:29] LABS: Amorphous Sediment,Urine Rare /hpf; Appearance,Urine Cloudy (Clear); Bacteria,Urine Rare /hpf; Bilirubin,Urine Negative (Negative); Blood,Urine Negative (Negative); Color,Urine Yellow; Glucose,Urine (UA) Negative (Negative); Ketones,Urine Negative (Negative); Leukocyte Esterase,Urine Negative (Negative); Mucus,Urine Occasional /hpf; Nitrite,Urine Negative (Negative); Protein,Urine Trace (Negative); RBC,Urine 3 /hpf (0-5); Specific Gravity,Urine 1.026 (1.001-1.035); WBC,Urine 2 /hpf (0-5)
[2019-03-19 10:41] LABS: Basophils # (A) 0.1 k/uL (0-0.2); Basophils % (A) 1 %; Eosinophils # (A) 0.1 k/uL (0-0.7); Eosinophils % (A) 2 %; HCT 44.1 % (39.0-53.0); Lymphocytes # (A) 1.5 k/uL (1.0-4.8); Lymphocytes % (A) 33 %; MCH 30.9 pg (25.0-35.0); MCHC 34.1 g/dL (31.0-37.0); MCV 90.7 fL (80.0-100.0); Mean Platelet Volume 6.6; Monocytes # (A) 0.5 k/uL (0-1.0); Monocytes % (A) 10 %; Neutrophils # (A) 2.2 k/uL (1.3-7.7); Neutrophils % (A) 50 %; Platelet Count 258 k/uL (150-450); RBC 4.86 m/uL (4.30-5.90); RDW 12.3 % (11.5-15.5); WBC 4.5 k/uL (3.8-10.6)
[2019-03-19] MEDS ORDERED: METOCLOPRAMIDE 5 MG/ML 2 ML VIAL IVP STA (11:07)
[2019-03-19] MEDS ORDERED: SODIUM CHLORIDE 0.9% 1,000 ML IV ONE (11:07)
[2019-03-19] MEDS ORDERED: diphenhydrAMINE 50 MG/ML 1 ML VIAL IVP STA (11:07)
[2019-03-19 11:09] VITALS: RESP 20
[2019-03-19 12:39] VITALS: BP 110/58; PULSE 60
== END 2019-03-19 12:40 | disposition home or self-care (01) ==
LOC: EC 09:16
DX: R42 Dizziness and giddiness (principal); R11.2 Nausea with vomiting, unspecified; R10.9 Unspecified abdominal pain; Z87.891 Personal history of nicotine dependence
CPT/HCPCS: 36415; 93005; 80053; 83690; 85025; 81001; 99284; 96374; 96375 ×3; 96361 ×2; J1200; J2765; J2405; J1885